=== PATIENT | male | born 1940 | race Caucasian/White ===

== ENCOUNTER → 2017-04-20 | Day surgery (SDC) | payer MEDICARE, OTHER ==
[~2017-04-20] MED LIST: Lactated Ringers 1,000 ML IV SCH; Propofol 200 MG/20 ML SDV IV ONE
--- NOTE | 2017-04-20 08:34 | OR ---
DATE OF OPERATION: 04/20/2017 PREOPERATIVE DIAGNOSIS: GERD. POSTOPERATIVE DIAGNOSIS: GERD. SURGEON: Marcin Oshea MD PROCEDURE: EGD WITH BIOPSY X1, AARON. ANESTHESIA: PATIENT FINANCIAL SPECIALIST due to chronic reflux and advanced age. COMPLICATIONS: None. SPECIMEN: 1. AARON. 2. Fundal biopsy x1. FINDINGS: 1. Full-length EGD. 2. Status post gastric antrectomy. 3. Gastritis near anastomosis. RECOMMENDATIONS: The patient will be initiated on proton pump therapy. INDICATIONS: The patient was in to see Dr. Pardo, admitted and will be having some reflux issues. 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 DESCRIPTION OF PROCEDURE: The patient was prepped and draped, placed in the left lateral decubitus position. A lubricated Olympus gastroscope was inserted over a bit and advanced to cricopharyngeus and easily intubated in the esophagus. Esophageal lining was benign in its entire course. The Z-line was crisp and sharp around 39 cm. There was some minimal spontaneous reflux. No distal esophagitis, stricturing, ulceration, or Buenrostro's changes. The scope was advanced into the stomach which is markedly shortened by a prior antrectomy. There is a jejunal connection with no signs of any gross abnormalities in the small bowel. On the fundal side of the anastomosis, the patient does have just some chronic appearing and very friable gastritis tissue. No srini ulcerations were seen. There were no other polyps, masses or other lesions. Biopsy of the area along with a AARON test were obtained. Air was suctioned. Scope was removed without complication. KANDY/JULITO /[id number]
== END ==
LOC: CC.SDS 06:29
PROVIDERS: ATTEND Family Medicine
DX: K29.50 Unspecified chronic gastritis without bleeding (principal); K21.0 Gastro-esophageal reflux disease with esophagitis; Z90.3 Acquired absence of stomach [part of]; Z79.899 Other long term (current) drug therapy
CPT/HCPCS: 43239; 87081; J2704; J7120; 00740; 88305

== ENCOUNTER 2019-12-05 12:10 | Emergency (ER) | payer MEDICARE, OTHER ==
[2019-12-05] MEDS ORDERED: fentaNYL 100 MCG/2 ML SDV IVPUSH ONE (12:32)
[2019-12-05 12:46] LABS: CHLORIDE,CL 104 mEq/L (98-106); SODIUM,NA 140 mEq/L (136-145)
--- NOTE | 2019-12-05 12:59 | EDM.PDOC ---
<Berto Valenzuela - Last Filed: 12/05/19 13:23> ED HPI GENERAL MEDICAL PROBLEM - General Chief Complaint: Abdominal Pain Stated Complaint: LOWER ABD PAIN Time Seen by Provider: 12/05/19 12:20 Source of Information: Reports: Patient History Limitations: Reports: No Limitations - History of Present Illness INITIAL COMMENTS - FREE TEXT/NARRATIVE: Kleber is an 79 yr old male who presents to the ED via private vehicle with complaints of abdominal pain. States he was doing fine this morning and had went outside to the garden when the pain started. Admits to low abdomen pain, roughly wear his bladder is. Admits he did set up an appointment in the clinic but it has gotten to a point that he is having a hard time with the pain. Denies any prior abdominal pain. States he does have a history of enlarged prostate and is currently taking Finasteride and Flomax. Admits to decrease in urination recently but is able to still void. Last bowel movement was yesterday morning and normal. Location: Reports: Pelvis Quality: Reports: Sharp, Stabbing Improves with: Reports: None Worsens with: Reports: None Associated Symptoms: Reports: Nausea/Vomiting (nausea) Lower Abdomen Pain Score (Numeric/FACES): 10 - Related Data Allergies Allergy/AdvReac Type Severity Reaction Status Date / Time No Known Allergies Allergy Verified 12/05/19 12:42 Home Meds: Home Meds Brimonidine [Alphagan 0.2% Ophth Soln] 1 drop EYEBOTH BID 04/19/17 [History] Finasteride 5 mg PO DAILY 04/19/17 [History] Latanoprost 1 drop EYEBOTH DAILY 04/19/17 [History] Mometasone/Formoterol [Dulera 200-5 MCG] 1 puff INH DAILY 04/19/17 [History] Sucralfate 1 gm PO QID 04/19/17 [History] Tamsulosin HCl 0.4 mg PO DAILY 04/19/17 [History] lamoTRIgine 200 mg PO BID 04/19/17 [History] Aspirin [Halfprin] 81 mg PO DAILY 04/20/17 [History] Rosuvastatin [Crestor] 5 mg PO DAILY 12/05/19 [History] Past Medical History Cardiovascular History: Reports: High Cholesterol, Other (See Below) (valvular disease) Respiratory History: Reports: COPD Gastrointestinal History: Reports: GERD Genitourinary History: Reports: BPH Musculoskeletal History: Reports: Arthritis Neurological History: Reports: Seizure Psychiatric History: Reports: None Endocrine/Metabolic History: Reports: None Hematologic History: Reports: None Oncologic (Cancer) History: Reports: None - Past Surgical History HEENT Surgical History: Reports: Cataract Surgery GI Surgical History: Reports: Cholecystectomy Social & Family History - Tobacco Use Smoking Status *Q: Former Smoker - Alcohol Use Alcohol Use History: Yes Alcohol Use Frequency: Rarely, Socially - Recreational Drug Use Recreational Drug Use: No - Living Situation & Occupation Living situation: Reports: , with Spouse Occupation: Retired ED ROS GENERAL - Review of Systems Review Of Systems: Comprehensive ROS is negative, except as noted in HPI. Constitutional: Denies: Fever, Chills, Decreased Appetite HEENT: Reports: No Symptoms Respiratory: Reports: No Symptoms Cardiovascular: Reports: No Symptoms GI/Abdominal: Reports: Abdominal Pain, Constipation, Nausea. Denies: Bloody Stool, Diarrhea, Difficulty Swallowing, Flatus, Hematochezia, Melena, Vomiting : Reports: Pain, Urinary Retention Musculoskeletal: Reports: No Symptoms Skin: Reports: No Symptoms Neurological: Reports: No Symptoms Psychiatric: Reports: No Symptoms ED EXAM, GI/ABD - Physical Exam Exam: See Below Exam Limited By: No Limitations General Appearance: Alert, Moderate Distress Ears: Normal External Exam, Hearing Grossly Normal Nose: Normal Inspection, No Blood Throat/Mouth: Normal Inspection, Normal Voice, No Airway Compromise Head: Atraumatic, Normocephalic Neck: Normal Inspection, Supple Respiratory/Chest: No Respiratory Distress, Lungs Clear, Normal Breath Sounds, No Accessory Muscle Use Cardiovascular: Regular Rate, Rhythm, No Edema, No Murmur GI/Abdominal Exam: No Organomegaly, Distended (pelvic region), Guarding, Tender , Abnormal Bowel Sounds (diminished) Extremities: Normal Inspection, No Pedal Edema Neurological: Alert, Oriented, Normal Cognition Psychiatric: Normal Affect, Normal Mood Skin Exam: Warm, Dry, Intact, Normal Color, No Rash Course - Vital Signs Last Recorded V/S: Last Vital Signs Temp 98.6 F 12/05/19 12:53 Pulse 60 12/05/19 12:53 Resp 18 12/05/19 12:53 BP 145/53 H 12/05/19 17:45 Pulse Ox 99 12/05/19 12:53 - Orders/Labs/Meds Orders: Active Orders 24 hr Category Date Time Status Enema [RC] ASDIRECTED Care 12/05/19 14:39 Active Abdomen 2V AP Flat Upright [CR] Stat Exams 12/05/19 12:53 Taken Abdomen Pelvis w Cont [CT] Routine Exams 12/05/19 13:22 Taken Renal Comp [US] Stat Exams 12/05/19 12:49 Taken Sodium Chloride 0.9% [Normal Saline] 500 ml Med 12/05/19 14:15 Active IV .BOLUS Medication Orders Sodium Chloride (Normal Saline) 500 mls @ 500 mls/hr IV .BOLUS YOCASTA Last Admin: 12/05/19 14:17 Dose: 500 mls/hr Labs: Laboratory Tests 12/05/19 12/05/19 12/05/19 Range/Units 12:28 12:28 12:28 WBC 7.8 (5.0-10.0) 10^3/uL RBC 4.68 (4.50-6.00) 10^6/uL Hgb 14.8 (14.0-18.0) g/dL Hct 44.5 (40.0-54.0) % MCV 95.1 H (82.0-94.0) fL MCH 31.6 (27.0-32.0) pg MCHC 33.3 (33.0-38.0) g/dL RDW Coeff of Lianna 13.4 (11.0-15.0) % Plt Count 253 (150-400) 10^3/uL Neut % (Auto) 78.3 (35-85) % Lymph % (Auto) 12.0 (10-55) % Laporte % (Auto) 6.1 (0-16) % Eos % (Auto) 3.2 (0-5) % Baso % (Auto) 0.4 (0-3) % Neut # (Auto) 6.08 (1.80-7.00) 10^3/uL Lymph # (Auto) 0.93 L (1.00-4.80) 10^3/uL Laporte # (Auto) 0.47 (0.00-0.80) 10^3/uL Eos # (Auto) 0.25 (0.00-0.45) 10^3/uL Baso # (Auto) 0.03 10^3/uL Sodium 140 (136-145) mEq/L Potassium 4.5 (3.5-5.0) mEq/L Chloride 104 (98-106) mEq/L Carbon Dioxide 29 (21-32) mmol/L BUN 30 H (7-18) mg/dL Creatinine 1.3 (0.7-1.3) mg/dL Est Cr Clr Drug Dosing TNP Estimated GFR (MDRD) 53 L (>=60) mL/min Glucose 104 H (75-99) mg/dL Lactic Acid (0.4-2.0) mmol/L Calcium 9.2 (8.4-10.1) mg/dL Total Bilirubin 0.5 (0.0-1.0) mg/dL AST 29 (15-37) U/L ALT 42 (12-78) U/L Alkaline Phosphatase 60 (46-116) U/L C-Reactive Protein < 0.2 L (0.2-0.8) mg/dL Total Protein 7.3 (6.4-8.2) g/dL Albumin 4.0 (3.4-5.0) g/dL Urine Color Dark yellow (YELLOW) Urine Appearance Clear (CLEAR) Urine pH 5.5 (4.5-8.0) Ur Specific Fult[place] >= 1.030 H (1.003-1.020) Urine Protein Negative (NEGATIVE) mg/dL Urine Glucose (UA) Negative (NEGATIVE) mg/dL Urine Ketones Negative (NEGATIVE) mg/dL Urine Occult Blood Negative (NEGATIVE) Urine Nitrite Negative (NEGATIVE) Urine Bilirubin Negative (NEGATIVE) Urine Urobilinogen 0.2 (0.2-1.0) EU/dL Ur Leukocyte Esterase Negative (NEGATIVE) 12/05/19 Range/Units 13:22 WBC (5.0-10.0) 10^3/uL RBC (4.50-6.00) 10^6/uL Hgb (14.0-18.0) g/dL Hct (40.0-54.0) % MCV (82.0-94.0) fL MCH (27.0-32.0) pg MCHC (33.0-38.0) g/dL RDW Coeff of Lianna (11.0-15.0) % Plt Count (150-400) 10^3/uL Neut % (Auto) (35-85) % Lymph % (Auto) (10-55) % Laporte % (Auto) (0-16) % Eos % (Auto) (0-5) % Baso % (Auto) (0-3) % Neut # (Auto) (1.80-7.00) 10^3/uL Lymph # (Auto) (1.00-4.80) 10^3/uL Laporte # (Auto) (0.00-0.80) 10^3/uL Eos # (Auto) (0.00-0.45) 10^3/uL Baso # (Auto) 10^3/uL Sodium (136-145) mEq/L Potassium (3.5-5.0) mEq/L Chloride (98-106) mEq/L Carbon Dioxide (21-32) mmol/L BUN (7-18) mg/dL Creatinine (0.7-1.3) mg/dL Est Cr Clr Drug Dosing Estimated GFR (MDRD) (>=60) mL/min Glucose (75-99) mg/dL Lactic Acid 1.3 (0.4-2.0) mmol/L Calcium (8.4-10.1) mg/dL Total Bilirubin (0.0-1.0) mg/dL AST (15-37) U/L ALT (12-78) U/L Alkaline Phosphatase (46-116) U/L C-Reactive Protein (0.2-0.8) mg/dL Total Protein (6.4-8.2) g/dL Albumin (3.4-5.0) g/dL Urine Color (YELLOW) Urine Appearance (CLEAR) Urine pH (4.5-8.0) Ur Specific Fult[place] (1.003-1.020) Urine Protein (NEGATIVE) mg/dL Urine Glucose (UA) (NEGATIVE) mg/dL Urine Ketones (NEGATIVE) mg/dL Urine Occult Blood (NEGATIVE) Urine Nitrite (NEGATIVE) Urine Bilirubin (NEGATIVE) Urine Urobilinogen (0.2-1.0) EU/dL Ur Leukocyte Esterase (NEGATIVE) Meds: Medications Generic Name Dose Route Start Last Admin Trade Name Freq PRN Reason Stop Dose Admin Sodium Chloride 500 mls @ 500 mls/hr 12/05/19 14:15 12/05/19 14:17 Normal Saline IV 500 mls/hr .BOLUS YOCASTA Administration Discontinued Medications Generic Name Dose Route Start Last Admin Trade Name Rashid PRN Reason Stop Dose Admin Fentanyl 25 mcg 12/05/19 12:32 12/05/19 12:40 Sublimaze IVPUSH 12/05/19 12:33 25 mcg ONETIME ONE Administration Hydromorphone HCl 1 mg 12/05/19 14:07 12/05/19 14:15 Dilaudid IVPUSH 12/05/19 14:08 1 mg ONETIME ONE Administration Iopamidol 100 ml 12/05/19 13:26 12/05/19 13:51 Isovue-370 (76%) IVPUSH 12/05/19 13:27 100 ml ONETIME ONE Administration Magnesium Citrate 296 ml 12/05/19 14:37 12/05/19 14:45 Citrate Of Magnesia PO 12/05/19 14:38 296 ml ONETIME ONE Administration Morphine Sulfate 4 mg 12/05/19 13:28 12/05/19 13:40 Morphine IVPUSH 12/05/19 13:29 Not Given ONETIME ONE Morphine Sulfate 4 mg 12/05/19 13:36 12/05/19 13:36 Morphine IVPUSH 12/05/19 13:37 4 mg ONETIME ONE Administration Morphine Sulfate Confirm 12/05/19 13:20 12/05/19 13:39 Morphine Administered 12/05/19 13:21 Not Given Dose 4 mg .ROUTE .STK-MED ONE Ondansetron HCl 4 mg 12/05/19 14:07 12/05/19 14:17 Zofran IVPUSH 12/05/19 14:08 4 mg NOW STA Administration Ondansetron HCl 4 mg 12/05/19 15:23 12/05/19 16:02 Zofran IVPUSH 12/05/19 15:24 4 mg NOW STA Administration - Radiology Interpretation Free Text/Narrative:: Renal/bladder ultrasound done, No definitive cause of severe pain. X-ray of the abdomen did show air fluid levels. Pain did not improved with 25mcg of Fentanyl. Will give IV morphine for pain control. Deric Patton consulted in regards to Don's care and will take over at this time. CT of the abdomen/pelvis pending currently. Departure - Departure Disposition: DC/Tfer to [facility] Clinical Impression: Volvulus - Discharge Information Referrals: Berto Valenzuela PA-C [Primary Care Provider] - Forms: ED Department Discharge Sepsis Event Note - Focused Exam Vital Signs: Vital Signs Temp Pulse Resp BP Pulse Ox 12/05/19 17:45 145/53 H 12/05/19 12:53 98.6 F 60 18 160/84 H 99 Date Exam was Performed: 12/05/19 Time Exam was Performed: 13:23 - My Orders Last 24 Hours: My Active Orders 12/05/19 14:15 Sodium Chloride 0.9% [Normal Saline] 500 ml IV .BOLUS 12/05/19 14:39 Enema [RC] ASDIRECTED - Assessment/Plan Last 24 Hours: My Active Orders 12/05/19 14:15 Sodium Chloride 0.9% [Normal Saline] 500 ml IV .BOLUS 12/05/19 14:39 Enema [RC] ASDIRECTED <Deric Patton - Last Filed: 12/05/19 17:57> Course - Radiology Interpretation CT Results Date: 12/05/19 CT Results Time: 14:20 - Re-Assessments/Exams Free Text/Narrative Re-Assessment/Exam: 12/05/19 13:40 I Deric Patton, have taken care over for this patient and obtained report from Matteo Valenzuela. 12/05/19 13:50 The patient has just returned from CT. Patient is holding abdomen and reports that the pain medication is not helping his abdominal pain. I have ordered Dilauded and Zofran for this patient. I performed an assessment of this patient , I agree with Matteo Valenzuela assessment. My concern is for obstruction or ischemic bowel at this time. 12/05/19 14:39 I spoke to the radiologist. No inflammation, no small bowel obstruction, no twisting of bowel is seen. Ton of stool in the sigmoid colon, not so much in the rectum. No colitis 12/05/19 14:50 I went and spoke to the patient about his lab and ct results. Patient now reports this does have some abdominal pain, but much better since Dilaudid. Patient reports that he does have history of chronic constipation. Patient reports that the Dilaudid worked very well and brought his pain from a 10/10 to a 3/10. Patient reports no nausea. Patient reports he feels a little dizzy after the Dilaudid, but feels pretty good. I have ordered Magnesium Citrate and a soap enema for this patient. Will continue ER observation and assess patient after these are done with success to evaluate patient at that time. 12/05/19 16:07 Patient is getting enema, and having some BM. Patient reports feeling nauseated. 1700 Patient reports that he feels a little dizzy. Patient reports his belly pain is improved, but did vomit x1. Patient reports he has had a lot of stool. I went down to radiology to obtain the dictated radiology CT report on this patient. The impression states "sigmoid colon is markedly redundant containing a large volume of stool with a small volume of stool within the rectum and the remainder of the colon. Sigmoid colon can be followed to a transition point/ narrowing/breaking, GI consultation and at minimum a sigmoidoscopy is recommended to evaluate for stricturing or an obstructing lesion. No pneumatosis intestinalis, free fluid or free/extraluminal air. Left lower lobe 4mm nodules. Called [facility] to call me back. 12/05/[address] Casper KELLEY at [facility]. He has viewed patient CT. He reports this patient has a Volvulus. He reports to send patient for transfer. I then spoke to Dr. Crane who is the accepting hospitalist. Will transfer the patient. 12/05/19 17:54 Departure - Departure Time of Disposition: 17:56 Condition: Serious - Discharge Information *PRESCRIPTION DRUG MONITORING PROGRAM REVIEWED*: Not Applicable *COPY OF PRESCRIPTION DRUG MONITORING REPORT IN PATIENT NATHNA: Not Applicable Sepsis Event Note - Focused Exam Date Exam was Performed: 12/05/19 Time Exam was Performed: 17:56 - My Orders Last 24 Hours: My Active Orders 12/05/19 14:15 Sodium Chloride 0.9% [Normal Saline] 500 ml IV .BOLUS 12/05/19 14:39 Enema [RC] ASDIRECTED - Assessment/Plan Last 24 Hours: My Active Orders 12/05/19 14:15 Sodium Chloride 0.9% [Normal Saline] 500 ml IV .BOLUS 12/05/19 14:39 Enema [RC] ASDIRECTED Plan: PLEASE SEE RN NOTE FOR PFSH. Patient is being transferred to [facility]. Risk vs benefits explained to patient and via phone. Risk of transfer is mvc, , worsening of condition, bowel . The risk of staying in [place] is no GI, no scope ability on weekend, , worsening of condition, The benefit of transfer is higher level of care, GI specialist, Scope ability. The benefits of staying in [place] is close to home.
[2019-12-05] MEDS ORDERED: Iopamidol 755 Mg/ML 100 ML Bottle IVPUSH ONE (13:26)
[2019-12-05] MEDS ORDERED: Morphine 10 MG/ML Syringe IVPUSH ONE (13:28)
[2019-12-05] MEDS ORDERED: Ondansetron 4 MG/2 ML SDV IVPUSH STA ×2 (14:07→15:23)
[2019-12-05] MEDS ORDERED: HYDROmorphone 1 MG/ML Syringe IVPUSH ONE (14:07)
[2019-12-05] MEDS ORDERED: Sodium Chloride 0.9% 500 ML IV SCH (14:15)
[2019-12-05] MEDS ORDERED: Magnesium Citrate Solution 296 ML Bottle PO ONE (14:37)
[2019-12-05] MEDS ORDERED: HYDROmorphone 1 MG/ML Syringe ONE (18:37)
== END 2019-12-05 18:36 ==
LOC: CC.ED 12:10
DX: K56.2 Volvulus (principal); R11.2 Nausea with vomiting, unspecified; K21.9 Gastro-esophageal reflux disease without esophagitis; J44.9 Chronic obstructive pulmonary disease, unspecified; N40.0 Benign prostatic hyperplasia without lower urinary tract symptoms; E78.00 Pure hypercholesterolemia, unspecified; R56.9 Unspecified convulsions; Z87.891 Personal history of nicotine dependence; Z79.899 Other long term (current) drug therapy
CPT/HCPCS: 36415; 74019; 74177; 76770; 80053; 81003; 83605; 85025; 86140; 96361; 96374; 96375; 96376; 99284; 99285-25; A9270-GY; J1170; J2270; J2405; J3010; J7040; Q9967

== ENCOUNTER 2020-08-13 16:57 | Emergency (ER) | payer MEDICARE, OTHER ==
[2020-08-13] MEDS: Ondansetron 4 MG/2 ML SDV IVPUSH PRN (17:20)
[2020-08-13 17:30] LABS: CHLORIDE,CL 101 mEq/L (98-106); SODIUM,NA 136 mEq/L (136-145)
[2020-08-13] MEDS: Sodium Chloride 0.9% 1,000 ML IV SCH (17:52)
[2020-08-13 17:58] LABS: CORONAVIRUS COVID-19 NAA NEGATIVE (NEGATIVE)
[2020-08-13] MEDS: Iopamidol 755 Mg/ML 100 ML Bottle IVPUSH ONE (18:23)
--- NOTE | 2020-08-13 18:32 | EDM.PDOC ---
ED HPI GENERAL MEDICAL PROBLEM - General Chief Complaint: Abdominal Pain Stated Complaint: abd pain, N/V Time Seen by Provider: 08/13/20 17:40 Source of Information: Reports: Patient History Limitations: Reports: No Limitations - History of Present Illness INITIAL COMMENTS - FREE TEXT/NARRATIVE: Ricardo is an 80 year old male who presents to ER with complaints of abdominal pain that started this am with nausea and vomiting that began an hour ago. On presentation to the ER, patient rated his pain at a 9. Was given Zofran for his nausea and admits the pain is better now with my arrival. Has a complicated abdominal history. 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 He has since had this reversed. Does admit that gets constipated at times, but had a large bowel movement this am. Had to strain to go initially but then was soft. Started vomiting an hour ago, states was pink but admits was very forceful. Has been on 2 different antibiotics lately for a UTI, currently on Macrobid. Denies fever. No chest discomfort, no shortness of breath. Onset: Today, Gradual Duration: Hour(s):, Getting Worse Location: Reports: Abdomen Quality: Reports: Ache Severity: Severe Associated Symptoms: Reports: Nausea/Vomiting. Denies: Confusion, Chest Pain, Cough, Fever/Chills, Loss of Appetite, Shortness of Breath, Syncope, Weakness Lower Abdomen Pain Score (Numeric/FACES): 9 - Related Data Allergies Allergy/AdvReac Type Severity Reaction Status Date / Time No Known Allergies Allergy Verified 08/13/20 17:02 Home Meds: Home Meds Brimonidine [Alphagan 0.2% Ophth Soln] 1 drop EYEBOTH BID 04/19/17 [History] Finasteride 5 mg PO DAILY 04/19/17 [History] Latanoprost 1 drop EYEBOTH DAILY 04/19/17 [History] Mometasone/Formoterol [Dulera 200-5 MCG] 1 puff INH DAILY 04/19/17 [History] Sucralfate 1 gm PO QID 04/19/17 [History] Tamsulosin HCl 0.4 mg PO DAILY 04/19/17 [History] lamoTRIgine 200 mg PO BID 04/19/17 [History] Rosuvastatin [Crestor] 5 mg PO DAILY 12/05/19 [History] Apixaban [Eliquis] 1 tab PO BID 08/13/20 [History] Nitrofurantoin Monohyd/M-Cryst [Macrobid 100 mg Capsule] 1 tab PO BID 08/13/20 [History] Past Medical History HEENT History: Reports: None Cardiovascular History: Reports: High Cholesterol Respiratory History: Reports: COPD Gastrointestinal History: Reports: GERD Genitourinary History: Reports: BPH, UTI, Recurrent Musculoskeletal History: Reports: Arthritis Neurological History: Reports: Seizure Other Neuro History: Epilepsy Psychiatric History: Reports: None Endocrine/Metabolic History: Reports: None Hematologic History: Reports: None Oncologic (Cancer) History: Reports: None - Past Surgical History HEENT Surgical History: Reports: Cataract Surgery Cardiovascular Surgical History: Reports: None Respiratory Surgical History: Reports: None GI Surgical History: Reports: Cholecystectomy, Colostomy, Small Bowel Male Surgical History: Reports: None Neurological Surgical History: Reports: None Social & Family History - Family History Family Medical History: No Pertinent Family History - Tobacco Use Tobacco Use Status *Q: Never Tobacco User - Caffeine Use Caffeine Use: Reports: None - Recreational Drug Use Recreational Drug Use: No - Living Situation & Occupation Living situation: Reports: , with Spouse Occupation: Retired ED ROS GENERAL - Review of Systems Review Of Systems: See Below Constitutional: Reports: Decreased Appetite. Denies: Fever, Chills, Malaise, Weakness, Fatigue HEENT: Reports: No Symptoms Respiratory: Denies: Shortness of Breath, Cough Cardiovascular: Denies: Chest Pain, Edema, Lightheadedness Endocrine: Denies: Fatigue GI/Abdominal: Reports: Abdominal Pain, Nausea, Vomiting. Denies: Constipation, Diarrhea : Reports: Frequency Musculoskeletal: Reports: No Symptoms Skin: Reports: No Symptoms Neurological: Reports: No Symptoms Psychiatric: Reports: No Symptoms ED EXAM, GI/ABD - Physical Exam Exam: See Below Exam Limited By: No Limitations General Appearance: Alert, WD/WN, No Apparent Distress Ears: Normal External Exam, Normal TMs Nose: Normal Inspection, Normal Mucosa, No Blood Throat/Mouth: Normal Inspection, Normal Oropharynx Head: Normocephalic Neck: Normal Inspection, Supple, Non-Tender Respiratory/Chest: No Respiratory Distress, Lungs Clear, Normal Breath Sounds Cardiovascular: Tachycardia GI/Abdominal Exam: Normal Bowel Sounds, Soft, Tender Extremities: Normal Inspection, No Pedal Edema Neurological: Alert, Oriented Skin Exam: Warm, Dry Course - Vital Signs Last Recorded V/S: Last Vital Signs Temp 98.3 F 08/13/20 16:59 Pulse 117 H 08/13/20 16:59 Resp 18 08/13/20 16:59 BP 138/90 08/13/20 16:59 Pulse Ox 99 08/13/20 16:59 - Orders/Labs/Meds Orders: Active Orders 24 hr Category Date Time Status Abdomen 2V AP Flat Upright [CR] Stat Exams 08/13/20 17:24 Taken Abdomen Pelvis w Cont [CT] Stat Exams 08/13/20 17:56 Ordered Ondansetron [Zofran] Med 08/13/20 17:06 Active 4 mg IVPUSH Q6H PRN Sodium Chloride 0.9% [Normal Saline] 1,000 ml Med 08/13/20 17:45 Active IV ASDIRECTED Medication Orders Sodium Chloride (Normal Saline) 1,000 mls @ 500 mls/hr IV ASDIRECTED YOCASTA Last Admin: 08/13/20 17:52 Dose: 500 mls/hr Documented by: GIOVANNY Ondansetron HCl (Zofran) 4 mg IVPUSH Q6H PRN PRN Reason: Nausea/Vomiting Last Admin: 08/13/20 17:20 Dose: 4 mg Documented by: GIOVANNY Labs: Laboratory Tests 08/13/20 08/13/20 08/13/20 Range/Units 17:15 17:15 17:15 WBC 14.9 H (5.0-10.0) 10^3/uL RBC 4.41 L (4.50-6.00) 10^6/uL Hgb 12.0 L (14.0-18.0) g/dL Hct 37.4 L (40.0-54.0) % MCV 84.8 (82.0-94.0) fL MCH 27.2 (27.0-32.0) pg MCHC 32.1 L (33.0-38.0) g/dL RDW Coeff of Lianna 13.1 (11.0-15.0) % Plt Count 367 (150-400) 10^3/uL Neut % (Auto) 90.3 H (35-85) % Lymph % (Auto) 6.3 L (10-55) % [place] % (Auto) 3.1 (0-16) % Eos % (Auto) 0.1 (0-5) % Baso % (Auto) 0.2 (0-3) % Neut # (Auto) 13.41 H (1.80-7.00) 10^3/uL Lymph # (Auto) 0.94 L (1.00-4.80) 10^3/uL [place] # (Auto) 0.46 (0.00-0.80) 10^3/uL Eos # (Auto) 0.02 (0.00-0.45) 10^3/uL Baso # (Auto) 0.03 10^3/uL Sodium 136 (136-145) mEq/L Potassium 4.6 (3.5-5.0) mEq/L Chloride 101 (98-106) mEq/L Carbon Dioxide 24 (21-32) mmol/L BUN 31 H D (7-18) mg/dL Creatinine 1.6 H (0.7-1.3) mg/dL Est Cr Clr Drug Dosing 30.20 mL/min Estimated GFR (MDRD) 42 L (>=60) mL/min Glucose 221 H D (75-99) mg/dL Calcium 9.2 (8.4-10.1) mg/dL Total Bilirubin 0.5 (0.0-1.0) mg/dL AST 25 (15-37) U/L ALT 42 (12-78) U/L Alkaline Phosphatase 81 (46-116) U/L C-Reactive Protein < 0.2 L (0.2-0.8) mg/dL Total Protein 7.6 (6.4-8.2) g/dL Albumin 3.8 (3.4-5.0) g/dL Amylase 593 H (25-115) U/L Lipase 65 L (73-393) U/L Urine Color (YELLOW) Urine Appearance (CLEAR) Urine pH (4.5-8.0) Ur Specific [place] (1.003-1.020) Urine Protein (NEGATIVE) mg/dL Urine Glucose (UA) (NEGATIVE) mg/dL Urine Ketones (NEGATIVE) mg/dL Urine Occult Blood (NEGATIVE) Urine Nitrite (NEGATIVE) Urine Bilirubin (NEGATIVE) Urine Urobilinogen (0.2-1.0) EU/dL Ur Leukocyte Esterase (NEGATIVE) U Hyaline Cast (Auto) (NOT SEEN) /LPF Urine RBC (0-5) /HPF Urine WBC (0-5) /HPF Ur Epithelial Cells (NOT SEEN) /HPF Urine Mucus (NOT SEEN) /HPF Influenza Type A RNA Negative (NEGATIVE) Influenza Type B RNA Negative (NEGATIVE) SARS-CoV-2 RNA (KARINA) Negative (NEGATIVE) 08/13/20 Range/Units 17:32 WBC (5.0-10.0) 10^3/uL RBC (4.50-6.00) 10^6/uL Hgb (14.0-18.0) g/dL Hct (40.0-54.0) % MCV (82.0-94.0) fL MCH (27.0-32.0) pg MCHC (33.0-38.0) g/dL RDW Coeff of [place]ian[place] (11.0-15.0) % Plt Count (150-400) 10^3/uL Neut % (Auto) (35-85) % Lymph % (Auto) (10-55) % [place] % (Auto) (0-16) % Eos % (Auto) (0-5) % Baso % (Auto) (0-3) % Neut # (Auto) (1.80-7.00) 10^3/uL Lymph # (Auto) (1.00-4.80) 10^3/uL [place] # (Auto) (0.00-0.80) 10^3/uL Eos # (Auto) (0.00-0.45) 10^3/uL Baso # (Auto) 10^3/uL Sodium (136-145) mEq/L Potassium (3.5-5.0) mEq/L Chloride (98-106) mEq/L Carbon Dioxide (21-32) mmol/L BUN (7-18) mg/dL Creatinine (0.7-1.3) mg/dL Est Cr Clr Drug Dosing mL/min Estimated GFR (MDRD) (>=60) mL/min Glucose (75-99) mg/dL Calcium (8.4-10.1) mg/dL Total Bilirubin (0.0-1.0) mg/dL AST (15-37) U/L ALT (12-78) U/L Alkaline Phosphatase (46-116) U/L C-Reactive Protein (0.2-0.8) mg/dL Total Protein (6.4-8.2) g/dL Albumin (3.4-5.0) g/dL Amylase (25-115) U/L Lipase (73-393) U/L Urine Color [place] (YELLOW) Urine Appearance Clear (CLEAR) Urine pH 5.5 (4.5-8.0) Ur Specific [place] >= 1.030 H (1.003-1.020) Urine Protein Trace H (NEGATIVE) mg/dL Urine Glucose (UA) Negative (NEGATIVE) mg/dL Urine Ketones 15 H (NEGATIVE) mg/dL Urine Occult Blood Negative (NEGATIVE) Urine Nitrite Negative (NEGATIVE) Urine Bilirubin Negative (NEGATIVE) Urine Urobilinogen 4.0 H (0.2-1.0) EU/dL Ur Leukocyte Esterase Negative (NEGATIVE) U Hyaline Cast (Auto) Occasional H (NOT SEEN) /LPF Urine RBC Not seen (0-5) /HPF Urine WBC Not seen (0-5) /HPF Ur Epithelial Cells Few H (NOT SEEN) /HPF Urine Mucus Few H (NOT SEEN) /HPF Influenza Type A RNA (NEGATIVE) Influenza Type B RNA (NEGATIVE) SARS-CoV-2 RNA (KARINA) (NEGATIVE) Meds: Medications Generic Name Dose Route Start Last Admin Trade Name Freq PRN Reason Stop Dose Admin Sodium Chloride 1,000 mls @ 500 mls/hr 08/13/20 17:45 08/13/20 17:52 Normal Saline IV 500 mls/hr ASDIRECTED YOCASTA Administration Ondansetron HCl 4 mg 08/13/20 17:06 08/13/20 17:20 Zofran IVPUSH 4 mg Q6H PRN Administration Nausea/Vomiting Discontinued Medications Generic Name Dose Route Start Last Admin Trade Name Freq PRN Reason Stop Dose Admin Iopamidol 100 ml 08/13/20 17:55 08/13/20 18:23 Isovue-370 (76%) IVPUSH 08/13/20 17:56 100 ml ONETIME ONE Administration - Re-Assessments/Exams Free Text/Narrative Re-Assessment/Exam: 08/13/20 18:10 Labs noted. WBC is elevated, CRP is negative. Amylase elevated. Creatinine 1.6. Flat and upright of the abdomen shows air fluid levels. Will proceed with CT scan of abdomen. Patient is now resting better, retching has subsided. 08/13/20 19:00 REsting comfortably. Ice chips given. Denies any pain or nausea at this time. Awaiting CT report 1924-CT scan shows constipation. No infection, obstruction, inflammation. Discussed with patient. Advised to increase his Miralax to BID or TID for the next 2-3 days until clearing stool out and add Colace. Departure - Departure Time of Disposition: 19:28 Disposition: Home, Self-Care 01 Condition: Good Clinical Impression: Constipation, Acid reflux - Discharge Information *PRESCRIPTION DRUG MONITORING PROGRAM REVIEWED*: No *COPY OF PRESCRIPTION DRUG MONITORING REPORT IN PATIENT NATHAN: No Forms: ED Department Discharge Additional Instructions: 1. Rest 2. Push fluids 3. Increase Miralax to 2-3 times per day and add a stool softener. May decrease back to once daily Miralax if stools become more regular and soft 4. Start Protonix 40 mg daily 5. Discuss stopping Eliquis as has been 3 months since thrombophlebitis (superficial blood clot in arm) 6. Follow up with Matteo next week as scheduled. Sepsis Event Note (ED) - Evaluation Sepsis Screening Result: No Definite Risk - Focused Exam Vital Signs: Vital Signs Temp Pulse Resp BP Pulse Ox 08/13/20 16:59 98.3 F 117 H 18 138/90 99 - My Orders Last 24 Hours: My Active Orders 08/13/20 17:06 Ondansetron [Zofran] 4 mg IVPUSH Q6H PRN 08/13/20 17:24 Abdomen 2V AP Flat Upright [CR] Stat 08/13/20 17:45 Sodium Chloride 0.9% [Normal Saline] 1,000 ml IV ASDIRECTED 08/13/20 17:56 Abdomen Pelvis w Cont [CT] Stat - Assessment/Plan Last 24 Hours: My Active Orders 08/13/20 17:06 Ondansetron [Zofran] 4 mg IVPUSH Q6H PRN 08/13/20 17:24 Abdomen 2V AP Flat Upright [CR] Stat 08/13/20 17:45 Sodium Chloride 0.9% [Normal Saline] 1,000 ml IV ASDIRECTED 08/13/20 17:56 Abdomen Pelvis w Cont [CT] Stat
[2020-08-13] MEDS: Pantoprazole 40 MG Vial IVPUSH ONE (19:39)
== END 2020-08-13 20:30 | disposition home or self-care (01) ==
LOC: CC.ED 16:57
DX: K59.00 Constipation, unspecified (principal); K21.9 Gastro-esophageal reflux disease without esophagitis; R00.0 Tachycardia, unspecified; E78.00 Pure hypercholesterolemia, unspecified; J44.9 Chronic obstructive pulmonary disease, unspecified; N40.0 Benign prostatic hyperplasia without lower urinary tract symptoms; G40.909 Epilepsy, unspecified, not intractable, without status epilepticus; Z79.01 Long term (current) use of anticoagulants; Z79.899 Other long term (current) drug therapy; Z20.822 Contact with and (suspected) exposure to COVID-19; R05 Cough
CPT/HCPCS: 0240U; 36415; 74019; 74177; 80053; 81001; 82150; 83690; 85025; 86140; 96374; 96375; 99284; C9113; J2405; J7030; Q9967

== ENCOUNTER 2025-01-05 16:48 | Inpatient (IN) | payer MEDICARE ==
[2025-01-05] MEDS ORDERED: Ondansetron 4 MG/2 ML SDV IV PRN (17:25)
[2025-01-05] MEDS ORDERED: Sodium Chloride 0.9% 10 ML Syringe FLUSH PRN (17:25)
[2025-01-05] MEDS: Calcium Gluconate 10% 1 GM/10 ML SDV IVPUSH ONE (18:35)
[2025-01-05] MEDS: 50% Dextrose in Water 50 ML Syringe IV ONE (18:35)
[2025-01-05] MEDS: Insulin Regular, Human 100 Units/ML 10 ML Vial IVPUSH ONE (18:37)
[2025-01-05] MEDS ORDERED: MECOBALAMIN PO SCH (20:00)
[2025-01-05] MEDS: Non-Formulary Medication 1 Each (Brinzolamide/Brimonidine Tart [Simbrinza 1%-0.2% Eye Drop EYEBOTH SCH (22:25)
[2025-01-06] MEDS: Ondansetron 4 MG Tab.DIS PO PRN (02:39)
[2025-01-06 07:20] LABS: ALANINE AMINOTRANSFERASE,ALT 18.0 U/L (12-78); ASPARTATE AMNIOTRANSFERASE,AST 12.0 U/L (15-37); BILIRUBIN TOTAL 0.4 mg/dL (0.0-1.0); BLOOD UREA NITROGEN,BUN 33.0 mg/dL (7-18); CARBON DIOXIDE,CO2 19.0 mmol/L (21-32); CHLORIDE,CL 110.0 mEq/L (98-106); CREATININE 1.7 mg/dL (0.7-1.3); EST CRCL DRUG DOSING (CG) 28.13 mL/min; GLUCOSE RANDOM 100.0 mg/dL (75-99); POTASSIUM,K 5.3 mEq/L (3.5-5.0); PROTEIN TOTAL,TP 6.2 g/dL (6.4-8.2); SODIUM,NA 138.0 mEq/L (136-145)
[2025-01-06 07:34] LABS: BASOPHILS ABSOLUTE AUTO 0.04 10^3/uL (0.00-0.50); BASOPHILS PERCENT AUTO 0.5 % (0-1); EOSINOPHILS ABSOLUTE AUTO 0.19 10^3/uL (0.00-1.50); EOSINOPHILS PERCENT AUTO 2.3 % (0-6); IMMATURE GRAN ABSOLUTE AUTO 0.01 10^3/uL (0.00-0.49); IMMATURE GRAN PERCENT AUTO 0.1 % (0.0-4.9); LYMPHOCYTES ABSOLUTE AUTO 1.08 10^3/uL (0.60-5.00); LYMPHOCYTES PERCENT AUTO 13.0 % (24-44); MONOCYTES ABSOLUTE AUTO 0.56 10^3/uL (0.00-1.50); MONOCYTES PERCENT AUTO 6.8 % (0-10); NEUTROPHILS ABSOLUTE AUTO 6.41 x10^3/uL (1.80-8.00); NEUTROPHILS PERCENT AUTO 77.3 % (41-71); PLATELET COUNT,PLT 300 10^3/uL (150-400); RED BLOOD CELL COUNT 3.77 x10^6/uL (4.50-6.00); WHITE BLOOD CELL COUNT,WBC 8.3 10^3/uL (4.0-11.0)
[2025-01-06 07:42] LABS: ESTIMATED GFR 39.0 mL/min (>=60)
[2025-01-07 07:29] LABS: BASOPHILS ABSOLUTE AUTO 0.04 10^3/uL (0.00-0.50); BASOPHILS PERCENT AUTO 0.8 % (0-1); EOSINOPHILS ABSOLUTE AUTO 0.25 10^3/uL (0.00-1.50); EOSINOPHILS PERCENT AUTO 5.2 % (0-6); IMMATURE GRAN ABSOLUTE AUTO 0.01 10^3/uL (0.00-0.49); IMMATURE GRAN PERCENT AUTO 0.2 % (0.0-4.9); LYMPHOCYTES ABSOLUTE AUTO 1.03 10^3/uL (0.60-5.00); LYMPHOCYTES PERCENT AUTO 21.5 % (24-44); MONOCYTES ABSOLUTE AUTO 0.39 10^3/uL (0.00-1.50); MONOCYTES PERCENT AUTO 8.2 % (0-10); NEUTROPHILS ABSOLUTE AUTO 3.06 x10^3/uL (1.80-8.00); NEUTROPHILS PERCENT AUTO 64.1 % (41-71); PLATELET COUNT,PLT 242 10^3/uL (150-400); RED BLOOD CELL COUNT 3.41 x10^6/uL (4.50-6.00); WHITE BLOOD CELL COUNT,WBC 4.8 10^3/uL (4.0-11.0)
[2025-01-07 08:00] LABS: ALANINE AMINOTRANSFERASE,ALT 19.0 U/L (12-78); ASPARTATE AMNIOTRANSFERASE,AST 14.0 U/L (15-37); BILIRUBIN TOTAL 0.5 mg/dL (0.0-1.0); BLOOD UREA NITROGEN,BUN 22.0 mg/dL (7-18); CARBON DIOXIDE,CO2 21.0 mmol/L (21-32); CHLORIDE,CL 112.0 mEq/L (98-106); CREATININE 1.5 mg/dL (0.7-1.3); EST CRCL DRUG DOSING (CG) 31.88 mL/min; GLUCOSE RANDOM 93.0 mg/dL (75-99); POTASSIUM,K 4.6 mEq/L (3.5-5.0); PROTEIN TOTAL,TP 5.5 g/dL (6.4-8.2); SODIUM,NA 141.0 mEq/L (136-145)
[2025-01-07 08:02] LABS: ESTIMATED GFR 45.0 mL/min (>=60)
== END 2025-01-07 11:20 | disposition home or self-care (01) | DRG 641 ==
LOC: CC.MS 16:48 → UNDOADMIN 16:48 → CC.MS 17:25
PROVIDERS: ADMIT Physician Assistant Medical; ATTEND Physician Assistant Medical
DX: E87.5 Hyperkalemia (principal); N17.9 Acute kidney failure, unspecified; R00.1 Bradycardia, unspecified; E78.00 Pure hypercholesterolemia, unspecified; J44.9 Chronic obstructive pulmonary disease, unspecified; N40.0 Benign prostatic hyperplasia without lower urinary tract symptoms; M19.90 Unspecified osteoarthritis, unspecified site; G40.909 Epilepsy, unspecified, not intractable, without status epilepticus; Z98.49 Cataract extraction status, unspecified eye; Z90.49 Acquired absence of other specified parts of digestive tract; Z79.899 Other long term (current) drug therapy; Z98.890 Other specified postprocedural states
CPT/HCPCS: 36415; 80053; 82947; 84132; 85025; 93005; 93246; A9270-GY; J0612; J1610; J1650; J7030